=== PATIENT | male | born 1985 | race Caucasian/White ===

== ENCOUNTER 2018-12-22 19:18 | Emergency (ER) | payer MEDICAID ==
[~2018-12-22] VITALS: Ht 167.6 cm; Wt 81.2 kg
[2018-12-22 19:20] VITALS: Ht 167.6 cm; Wt 81.2 kg
[2018-12-22 23:09] VITALS: BP 110/61
== END 2018-12-22 23:04 | disposition home or self-care (01) ==
LOC: ED 19:18
DX: N45.1 Epididymitis (principal)
CPT/HCPCS: 87491; 87591; J0696; J1885; Q0092